=== PATIENT | male | born 1975 | race Two or more races ===

== ENCOUNTER 2024-09-10 10:30 | Inpatient (IN) | payer OTHER ==
[~2024-09-10] VITALS: Ht 175.3 cm; Wt 81.6 kg
[2024-09-17] MEDS ORDERED: METRONIDAZOLE/SODIUM CHLORIDE 500 MG/100 ML PIGGYBACK IV ONE (09:12)
[2024-09-17] MEDS ORDERED: levoFLOXacin IN DEXTROSE 5 % 5 MG/ML PIGGYBAG IV ONE (12:30)
[2024-09-17] MEDS ORDERED: DEXTROSE 50 % IN WATER 0.5 G/ML VIAL IV PRN (14:30)
[2024-09-17] MEDS ORDERED: ONDANSETRON HCL 2 MG/ML VIAL IV PRN (14:30)
[2024-09-17] MEDS ORDERED: OxyCODONE HCL 5 MG TABLET (ROXICODONE) PO PRN (14:30)
[2024-09-17] MEDS ORDERED: 0.9 % SODIUM CHLORIDE 1,000 ML IV SCH (14:30)
[2024-09-17] MEDS ORDERED: MORPHINE SULFATE 4 MG/ML CARTRIDGE IV PRN (14:30)
[2024-09-17] MEDS ORDERED: MORPHINE SULFATE 4 MG/ML VIAL IV ONE ×2 (15:05→15:50)
[2024-09-17] MEDS ORDERED: METRONIDAZOLE/SODIUM CHLORIDE 500 MG/100 ML PIGGYBACK IV SCH (17:00)
[2024-09-17] MEDS ORDERED: GABAPENTIN 300 MG CAPSULE PO SCH (17:00)
[2024-09-17] MEDS ORDERED: HYOSCYAMINE SULFATE 0.125 MG TAB.SUBL SL SCH (17:00)
[2024-09-17] MEDS ORDERED: ACETAMINOPHEN 500 MG GEL..CAP PO SCH (20:00)
[2024-09-17 20:10] VITALS: BP 169/101; O2SAT 98
[2024-09-17 20:51] LABS: BASO % 0.1 % (0.1-1.2); EOS # 0.00 (0.04-0.54); EOS % 0.0 % (0.7-7.0); LYMPH # 0.49 (1.18-3.74); LYMPH % 4.9 % (19.3-53.1); MEAN PLATELET VOLUME 10.70 fl (9.4-12.4); MONO # 0.59 (0.24-0.82); MONO % 5.9 % (4.7-12.5); NEUT # 8.86 (1.56-6.13); NEUT % 88.9 % (34.0-71.1); RED CELL DISTRIBUTION WIDTH 11.9 % (11.6-14.4)
[2024-09-17] MEDS ORDERED: CIPROFLOXACIN IN 5 % DEXTROSE 400 MG/200 ML PIGGYBAG IV SCH (21:00)
[2024-09-17] MEDS ORDERED: FAMOTIDINE/PF 20 MG/2 ML VIAL IV PUSH SCH (21:00)
[2024-09-17] MEDS ORDERED: CELECOXIB 200 MG CAPSULE PO SCH (21:00)
[2024-09-17] MEDS ORDERED: ENALAPRILAT DIHYDRATE 1.25 MG/ML VIAL IV PRN (21:15)
[2024-09-17 21:29] LABS: BUN CREA RATIO 9.0 (7.0-25.0); CREATININE SERUM 1.07 mg/dL (0.70-1.30); GFR 74.08; GLUCOSE FASTING 179.0 mg/dL (65-100); OSMOLALITY SERUM 281.0 MOSM/KG (275-295)
[2024-09-17] MEDS ORDERED: POTASSIUM PHOS,M-BASIC-D-BASIC 15 MM in 0.9 % SODIUM CHLORIDE 250 ML IV ONE (22:00)
[2024-09-18 00:33] VITALS: BP 166/93; O2SAT 96
[2024-09-18 06:52] LABS: BASO % 0.2 % (0.1-1.2); EOS # 0.00 (0.04-0.54); EOS % 0.0 % (0.7-7.0); LYMPH # 0.32 (1.18-3.74); LYMPH % 2.7 % (19.3-53.1); MEAN PLATELET VOLUME 10.60 fl (9.4-12.4); MONO # 0.50 (0.24-0.82); MONO % 4.2 % (4.7-12.5); NEUT # 11.13 (1.56-6.13); NEUT % 92.6 % (34.0-71.1); RED CELL DISTRIBUTION WIDTH 11.9 % (11.6-14.4)
[2024-09-18 07:18] LABS: BUN CREA RATIO 6.0 (7.0-25.0); CREATININE SERUM 0.98 mg/dL (0.70-1.30); GFR 81.98; GLUCOSE FASTING 154.0 mg/dL (65-100); OSMOLALITY SERUM 278.0 MOSM/KG (275-295)
[2024-09-18 08:00] VITALS: BP 154/90; O2SAT 96
[2024-09-18] MEDS ORDERED: SODIUM CHLORIDE 0.45 % 1,000 ML IV SCH (11:15)
[2024-09-18] MEDS ORDERED: MAGNESIUM SULFATE IN WATER 50 ML IV ONE (11:15)
[2024-09-18 16:00] VITALS: BP 151/92; O2SAT 94
[2024-09-18] MEDS ORDERED: ENOXAPARIN SODIUM 40 MG/0.4 ML SYRINGE SUBCUTANEO SCH (17:00)
[2024-09-19 01:11] VITALS: BP 117/79; O2SAT 97
[2024-09-19 07:12] LABS: BASO % 0.1 % (0.1-1.2); EOS # 0.00 (0.04-0.54); EOS % 0.0 % (0.7-7.0); LYMPH # 0.61 (1.18-3.74); LYMPH % 5.4 % (19.3-53.1); MEAN PLATELET VOLUME 10.70 fl (9.4-12.4); MONO # 0.31 (0.24-0.82); MONO % 2.8 % (4.7-12.5); NEUT # 10.25 (1.56-6.13); NEUT % 90.9 % (34.0-71.1); RED CELL DISTRIBUTION WIDTH 12.0 % (11.6-14.4)
[2024-09-19 08:00] VITALS: BP 114/77; O2SAT 95
[2024-09-19 08:05] LABS: BUN CREA RATIO 7.0 (7.0-25.0); CREATININE SERUM 0.95 mg/dL (0.70-1.30); GFR 84.98; GLUCOSE FASTING 114.0 mg/dL (65-100); OSMOLALITY SERUM 278.0 MOSM/KG (275-295)
[2024-09-19] MEDS ORDERED: ENOXAPARIN SODIUM 40 MG/0.4 ML SYRINGE SUBCUTANEO SCH (09:00)
[2024-09-19] MEDS ORDERED: POTASSIUM PHOS,M-BASIC-D-BASIC 15 MM in 0.9 % SODIUM CHLORIDE 250 ML IV ONE (11:00)
[2024-09-19 16:00] VITALS: BP 125/80; O2SAT 97
[2024-09-19] MEDS ORDERED: MORPHINE SULFATE 4 MG/ML CARTRIDGE IV PRN (20:45)
[2024-09-20 01:59] VITALS: BP 122/73; O2SAT 98
[2024-09-20 07:11] LABS: ALT/SGPT 27.0 U/L (12-78); AST/SGOT 23.0 U/L (15-37); BILIRUBIN TOTAL 0.85 mg/dL (0.3-1.2); BUN CREA RATIO 9.0 (7.0-25.0); CREATININE SERUM 0.77 mg/dL (0.70-1.30); GFR 108.29; GLOBULINA 2.8 G/DL (2.4-3.5); GLUCOSE FASTING 96.0 mg/dL (65-100); OSMOLALITY SERUM 279.0 MOSM/KG (275-295)
[2024-09-20 08:00] VITALS: BP 131/81; O2SAT 94
[2024-09-20] MEDS ORDERED: POTASSIUM PHOS,M-BASIC-D-BASIC 3 MM/ML VIAL IV NR (11:15)
[2024-09-20 15:17] LABS: BASO % 0.3 % (0.1-1.2); EOS # 0.02 (0.04-0.54); EOS % 0.2 % (0.7-7.0); LYMPH # 0.80 (1.18-3.74); LYMPH % 7.1 % (19.3-53.1); MEAN PLATELET VOLUME 10.30 fl (9.4-12.4); MONO # 0.43 (0.24-0.82); MONO % 3.8 % (4.7-12.5); NEUT # 10.02 (1.56-6.13); NEUT % 88.2 % (34.0-71.1); RED CELL DISTRIBUTION WIDTH 12.0 % (11.6-14.4)
[2024-09-20 16:00] VITALS: BP 112/82; O2SAT 97
[2024-09-20] MEDS ORDERED: VANCOMYCIN HCL 1,000 MG VIAL IV SCH (17:00)
[2024-09-20] MEDS ORDERED: AA 4.25%/CAL/LYTES/DEXT 5% 1,000 ML PERIFERAL SCH (17:00)
[2024-09-20] MEDS ORDERED: LORazepam 2 MG/ML VIAL IV STA (19:33)
[2024-09-20] MEDS ORDERED: LORazepam 2 MG/ML VIAL IV PRN (19:45)
[2024-09-21 02:21] VITALS: BP 119/89; O2SAT 97
[2024-09-21] MEDS ORDERED: PANTOPRAZOLE SODIUM 40 MG/VIAL VIAL IV SCH (06:00)
[2024-09-21 07:03] LABS: BASO % 0.4 % (0.1-1.2); EOS # 0.05 (0.04-0.54); EOS % 0.5 % (0.7-7.0); LYMPH # 1.04 (1.18-3.74); LYMPH % 10.1 % (19.3-53.1); MEAN PLATELET VOLUME 10.40 fl (9.4-12.4); MONO # 0.66 (0.24-0.82); MONO % 6.4 % (4.7-12.5); NEUT # 8.50 (1.56-6.13); NEUT % 82.1 % (34.0-71.1); RED CELL DISTRIBUTION WIDTH 12.1 % (11.6-14.4)
[2024-09-21 07:40] LABS: BUN CREA RATIO 20.0 (7.0-25.0); CREATININE SERUM 1.07 mg/dL (0.70-1.30); GFR 74.08; GLUCOSE FASTING 139.0 mg/dL (65-100); OSMOLALITY SERUM 286.0 MOSM/KG (275-295)
[2024-09-21 08:00] VITALS: BP 109/73; O2SAT 95
[2024-09-21] MEDS ORDERED: LORazepam 2 MG/ML VIAL IV PRN (08:32)
[2024-09-21] MEDS ORDERED: DIATRIZOATE MEGLUMINE, SODIUM 30 ML BOTTLE PO NR (08:45)
[2024-09-21 16:00] VITALS: BP 112/80; O2SAT 96
[2024-09-21] MEDS ORDERED: CEFEPIME HCL 2,000 MG VIAL IV SCH (17:00)
[2024-09-21] MEDS ORDERED: FAMOTIDINE/PF 20 MG/2 ML VIAL IV PUSH SCH (21:00)
[2024-09-22 01:37] VITALS: BP 129/73; O2SAT 96
[2024-09-22 07:58] LABS: BASO % 0.5 % (0.1-1.2); EOS # 0.32 (0.04-0.54); EOS % 3.9 % (0.7-7.0); LYMPH # 1.32 (1.18-3.74); LYMPH % 15.9 % (19.3-53.1); MEAN PLATELET VOLUME 10.30 fl (9.4-12.4); MONO # 0.95 (0.24-0.82); MONO % 11.4 % (4.7-12.5); NEUT # 5.64 (1.56-6.13); NEUT % 67.8 % (34.0-71.1); RED CELL DISTRIBUTION WIDTH 12.0 % (11.6-14.4)
[2024-09-22 08:00] VITALS: BP 131/83; O2SAT 97
[2024-09-22 08:14] LABS: ALT/SGPT 34.0 U/L (12-78); AST/SGOT 31.0 U/L (15-37); BILIRUBIN TOTAL 0.69 mg/dL (0.3-1.2); BUN CREA RATIO 24.0 (7.0-25.0); CREATININE SERUM 0.9 mg/dL (0.70-1.30); GFR 90.45; GLOBULINA 3.3 G/DL (2.4-3.5); GLUCOSE FASTING 116.0 mg/dL (65-100); OSMOLALITY SERUM 289.0 MOSM/KG (275-295)
[2024-09-22 16:00] VITALS: BP 106/76; O2SAT 99
[2024-09-23 01:31] VITALS: BP 126/87; O2SAT 98
[2024-09-23 08:00] VITALS: BP 152/84; O2SAT 95
[2024-09-23 16:00] VITALS: BP 123/87; O2SAT 100
[2024-09-24 01:15] VITALS: BP 124/82; O2SAT 98
[2024-09-24 07:25] LABS: BASO % 0.8 % (0.1-1.2); EOS # 0.29 (0.04-0.54); EOS % 4.7 % (0.7-7.0); LYMPH # 1.18 (1.18-3.74); LYMPH % 19.2 % (19.3-53.1); MEAN PLATELET VOLUME 10.20 fl (9.4-12.4); MONO # 0.73 (0.24-0.82); MONO % 11.9 % (4.7-12.5); NEUT # 3.82 (1.56-6.13); NEUT % 62.4 % (34.0-71.1); RED CELL DISTRIBUTION WIDTH 11.9 % (11.6-14.4)
[2024-09-24 07:48] LABS: INR 1.08
[2024-09-24 09:01] LABS: ALT/SGPT 36.0 U/L (12-78); AST/SGOT 30.0 U/L (15-37); BILIRUBIN TOTAL 0.92 mg/dL (0.3-1.2); BILIRUBIN,CONJUGATED 0.23 mg/dL (0.0-0.2); CHOL HDL RATIO 3.1 (0-5.0); HDL 34.0 mg/dl (40-60); LDL 42.0 mg/dl (0-130); VLDL 30.0 (0-39)
[2024-09-24 09:03] LABS: BUN CREA RATIO 25.0 (7.0-25.0); CREATININE SERUM 0.72 mg/dL (0.70-1.30); GFR 117.01; GLUCOSE FASTING 109.0 mg/dL (65-100); OSMOLALITY SERUM 293.0 MOSM/KG (275-295)
[2024-09-24 09:04] LABS: ALT/SGPT 37.0 U/L (12-78); AST/SGOT 26.0 U/L (15-37); BILIRUBIN TOTAL 0.82 mg/dL (0.3-1.2); GLOBULINA 3.0 G/DL (2.4-3.5)
[2024-09-24 09:49] VITALS: BP 123/80; O2SAT 98
[2024-09-24 16:00] VITALS: BP 119/81; O2SAT 100
[2024-09-24] MEDS ORDERED: VANCOMYCIN HCL 5 MG/ML REDILUIDO IV SCH (17:00)
[2024-09-25 02:09] VITALS: BP 115/72; O2SAT 98
[2024-09-25] MEDS ORDERED: LOPERAMIDE HCL 2 MG CAPSULE PO NR (07:15)
[2024-09-25 08:00] VITALS: BP 120/74; O2SAT 97
[2024-09-25] MEDS ORDERED: SUCRALFATE 1 G TABLET PO SCH (09:00)
[2024-09-25] MEDS ORDERED: CHOLESTYRAMINE/ASPARTAME LIGHT 4 G/PKT PACKET PO SCH (09:00)
[2024-09-25 16:00] VITALS: BP 122/78; O2SAT 99
[2024-09-25] MEDS ORDERED: FAMOTIDINE/PF 20 MG/2 ML VIAL IV PUSH SCH (21:00)
[2024-09-26 01:03] VITALS: BP 117/77; O2SAT 100
[2024-09-26] MEDS ORDERED: PANTOPRAZOLE SODIUM 40 MG TABLET.DR PO SCH (06:00)
[2024-09-26 09:00] VITALS: BP 98/60; O2SAT 99
[2024-09-26 20:39] VITALS: BP 125/82; O2SAT 99
[2024-09-27 02:27] VITALS: BP 114/77; O2SAT 98
[2024-09-27 08:00] VITALS: BP 124/73; O2SAT 97
[2024-09-27] MEDS ORDERED: INTESTINEX680 M1 PO (11:40)
[2024-09-27] MEDS ORDERED: HYOSCYAMINE0.125 M1 SL (11:40)
[2024-09-27] MEDS ORDERED: CHOLESTYRAMINE L4 GM PO (11:40)
[2024-09-27] MEDS ORDERED: PEPCID AC20 MG PO (11:40)
[2024-09-27] MEDS ORDERED: TRAM1TAB98 PO (11:41)
[2024-09-27] MEDS ORDERED: CLONAZEPAM1 MG PO (12:00)
== END 2024-09-27 14:15 | disposition home or self-care (01) | DRG 330 ==
LOC: SURH 09-17 07:00 → O/R 09-17 07:50 → SURH 09-17 07:50
PROVIDERS: Internal Medicine; Internal Medicine Geriatric Medicine; Internal Medicine Infectious Disease; ADMIT Surgery; ATTEND Surgery
PROC: 07BB4ZZ Excision of Mesenteric Lymphatic, Percutaneous Endoscopic Approach (ICD-10-PCS; 2024-09-17)
PROC: 0DTL4ZZ Resection of Transverse Colon, Percutaneous Endoscopic Approach (ICD-10-PCS; principal; 2024-09-17 07:00)
PROC: BW21YZZ Computerized Tomography (CT Scan) of Abdomen and Pelvis using Other Contrast (ICD-10-PCS; 2024-09-21)
PROC: 05HB33Z Insertion of Infusion Device into Right Basilic Vein, Percutaneous Approach (ICD-10-PCS; 2024-09-22)
DX: C18.5 Malignant neoplasm of splenic flexure (principal); K56.7 Ileus, unspecified; K91.89 Other postprocedural complications and disorders of digestive system; R65.10 Systemic inflammatory response syndrome (SIRS) of non-infectious origin without acute organ dysfunction; R11.0 Nausea